=== PATIENT | male | born 1945 | race Caucasian/White ===

== ENCOUNTER 2017-12-02 00:36 | Inpatient (IN) | payer MEDICARE ==
[2017-12-02] VITALS (29 sets, daily range): BP systolic 107–199; BP diastolic 53–109
[~2017-12-02] VITALS: Ht 185.4 cm; Wt 79.4 kg
--- NOTE | 2017-12-02 00:36 | NUR ---
BIB FAMILY C/O "NOT BEING ABLE TO SLEEP, SHAKING, HALLUCINATIONS" VSS NAD A/OX4 ABLE TO MAKE NEEDS KNOWN. WILLL CONTINUE TO MONITOR FOR ANY CHANGES DURING THE SHIFT.
--- NOTE | 2017-12-02 00:37 | NUR ---
ER MD SAMUEL AT BEDSIDE
[2017-12-02] MEDS ORDERED: Thiamine 100 MG in IV D5W 50 ML IV SCH ×3 (01:30→05:15)
[2017-12-02] MEDS ORDERED: LORAZEPAM INJ 2 MG/ML VIAL IV ONE ×3 (01:30→04:00)
[2017-12-02] MEDS ORDERED: IV NS 0.9% 1,000 ML BAG IV ONE (01:30)
[2017-12-02 01:42] LABS: BASOPHILS % (AUTO) 0.3 % (0.0-2.0); EOSINOPHILS % (AUTO) 2.1 % (0.0-6.0); HEMATOCRIT 42 % (39-51); HEMOGLOBIN 14.3 g/dL (13.5-17.5); LYMPHOCYTES # (AUTO) 0.7 /CMM (0.8-4.8); LYMPHOCYTES % (AUTO) 10.9 % (20.0-44.0); MEAN CORPUSCULAR HEMOGLOBIN 36 PG (26.0-33.0); MEAN CORPUSCULAR HGB CONC 34 g/dl (31.0-36.0); MEAN CORPUSCULAR VOLUME 105 fL (80-96); MONOCYTES # (AUTO) 0.7 /CMM (0.1-1.30); MONOCYTES % (AUTO) 10.8 % (2.0-12.0); NEUTROPHILS # (AUTO) 5.2 /CMM (1.8-8.9); NEUTROPHILS % (AUTO) 75.9 % (43.0-81.0); PLATELET COUNT (AUTO) 176 /CMM (150-450); RDW COEFFICIENT OF VARIATION 14.6 (11.5-15.0); RED BLOOD CELL COUNT(AUTO) 3.95 MIL/uL (4.5-6.0); WHITE BLOOD COUNT (AUTO) 6.8 K/uL (4.3-11.0)
[2017-12-02] MEDS ORDERED: Thiamine 100 MG/ML VIAL ONE (01:46)
[2017-12-02] MEDS ORDERED: LORAZEPAM INJ 2 MG/ML VIAL ONE ×3 (01:47→03:47)
[2017-12-02 01:51] LABS: CALCIUM, SERUM 9.2 mg/dL (8.5-10.1); CARBON DIOXIDE 27 mmol/L (21-32); CHLORIDE 100 mmol/L (98-107); GLUCOSE 96 mg/dL (74-106); POTASSIUM 4.5 mmol/L (3.5-5.1); SODIUM SERUM 138 mmol/L (136-145); UREA NITROGEN, BLOOD 13 mg/dL (7-18)
[2017-12-02 01:53] LABS: ALCOHOL, BLOOD < 3 mg/dL (0-0)
[2017-12-02] MEDS ORDERED: CHLORDIAZEPOXIDE HCL 25 MG CAPSULE PO ONE (04:00)
--- NOTE | 2017-12-02 04:25 | NUR ---
FAMILY HAS LEFT BEDSIDE. PT IS STILL AGITATED AFTER RECEIVING MULTIPLE DOSES OF ATIVAN IVP. PER MD SAMUEL WILL BE ADMITTING PT TO TELE
--- NOTE | 2017-12-02 04:49 | NUR ---
REPORT GIVEN TO LELO
[2017-12-02] MEDS ORDERED: IV D5/0.45 NACL 1,000 ML IV PRN (04:57)
[2017-12-02] MEDS ORDERED: LORAZEPAM INJ 2 MG/ML VIAL IV PRN (05:00)
[2017-12-02] MEDS ORDERED: ACETAMINOPHEN 325 MG TABLET PO PRN ×2 (05:00→05:15)
[2017-12-02] MEDS ORDERED: ACETAMINOPHEN 650 MG/SUPP.RECT RC PRN ×2 (05:00→05:15)
[2017-12-02] MEDS ORDERED: MAG HYDROX/AL HYDROX/SIMETH 30 ML UDC PO PRN ×2 (05:00→05:15)
[2017-12-02] MEDS ORDERED: ONDANSETRON HCL/PF 4 MG/2 ML VIAL IVP PRN ×2 (05:00→05:15)
[2017-12-02] MEDS ORDERED: Z GUARD REMEDY 2 OZ OINT TP PRN ×2 (05:00→05:15)
[2017-12-02] MEDS ORDERED: MAGNESIUM HYDROXIDE 30 ML UDC PO PRN ×2 (05:00→05:15)
[2017-12-02] MEDS ORDERED: INSULIN REGULAR, HUMAN 100 UNIT/ML 3 ML VIAL SQ PRN (05:30)
[2017-12-02] MEDS ORDERED: DEXTROSE 50%-WATER 50 ML DISP.SYRIN IV PRN ×2 (05:30)
[2017-12-02] MEDS: BLOOD SUGAR DIAGNOSTIC 1 EACH STRIP IN SCH ×4 (06:00→18:18)
[2017-12-02] MEDS ORDERED: BLOOD SUGAR DIAGNOSTIC 1 EACH STRIP IN SCH (06:00)
--- NOTE | 2017-12-02 06:28 | NUR ---
0515AM: PT WAS BROUGHT TO THE UNIT VIA GURNEY, PT IS SWEATING, STILL HAVING TREMORS IN THE LEGS, TRYING TO KICK AND PUT HIS LEGS OUT OF BED, PT IS AGITATED, FLUSHED FACE, MUMBLED WORDS REALLY DIFFICULT TO UNDERSTAND, PT RECEIVED 1L NS BOLUS IN ER, A TOTAL OF 10MG ATIVAN INJ, THIAMINE IV, NOTED PT'S LEFT AC IV ACCESS TO BE OUT, REINSERTED NEW IV ON LEFT AC G 20, ALSO ANOTHER IV ON RIGHT FA G 20, CONNECTED TO D5 1/2 NS ORDERED BY . PT WILL BE ADMITTED FOR ALCOHOL WITHDRAWAL, UPON REPORT PT HAS ETOH ABUSE, DRINK WHISKEY (PINT) EVERYDAY. PT REALLY HAS FOUL, ALCOHOL ODOR, DECIDED TO CLEAN THE PT, BED BATH PROVIDED WITH HELP OF ANOTHER RN AND TRESTLEMAN, PT REALLY STRONG, MOVING HIS UPPER AND LOWER EXTREMITIES. LAST VS REPORTED 119/75 T 98.2 RR 20, 98% RA, BLOOD SUGAR TAKEN RESULT IS 76. PLACED ON TELE MONITORING SINUS RHYTHM HR 80. PT NOTED TO HAVE RIGHT ELBOW ABRASION, RIGHT LEG ABRASION. INVENTORY OF BELONGING COMPLETED BY TRESTLEMAN IMMACULATE. AT 0530,APPROACHED BY JASPER SUMMERS THAT SHE RECEIVED A CALL FROM LAND PLANNER LOGAN VELA THAT THE PT WILL BE ADMITTED TO ICU, NOT TELEMETRY UNIT. JASPER COTTER CONTACTED JASPER HAMMOND AND ASK FOR A BED. AT 0540, LAND PLANNER LOGAN VELA CAME TO THE UNIT TO SEE THE PT, AND TOLD THE ME (THE RN), THAT PT IS AN ICU ADMISSION AND SHE DOESNT KNOW WHY THEY BRING PT TO TELEMETRY UNIT. PER JASPER SUMMERS, PT WILL GO TO BED 257 IN ICU. AT 0555, I WAS TOLD BY JASPER SUMMERS TO BRING THE PT TO ICU AND GIVE BED SIDE REPORT SHE ALREADY CALLED ICU AND TALKED TO INGA THE CASER UP/ELECTRONIC SCALE SUBASSEMBLER.CONNECTED TO 2L OXYGEN VIA NC. 0600, TRANSFERRED PT TO ICU VIA ACLS PROTOCOL. UPON GETTING TO ICU, WATCH ENGINEER ED STOOD UP, RAISED HIS VOICE THAT IT GET THE ATTENTION OF ALL THE STAFF IN ICU, AND ASKED WHY I BROUGHT THE PT WITHOUT GIVING BED SIDE REPORT, I TOLD HIM THAT I WAS TOLD TO BRING THE PT NOW AND GIVE REPORT AT BED SIDE, BECAUSE THAT WAS THE RAWHIDE BONE ROLLER TOLD ME, THAT ICU STAFF AWARE WE WILL BRING PT TO THE UNIT AND GIVE BED SIDE REPORT. I TRIED TO EXPLAIN TO HIM WHAT'S GOING ON, AND HE STILL UPSET. WE MOVED THE PT TO ROOM 257, AND I GAVE FULL REPORT TO ED RN. INFORMED HIM THAT WE HAVE NOT STARTED ANY DOCUMENTATION/ADMISSION THE PT JUST GOT TO [facility] UNIT AND WHILE WERE CLEANING THE PT, TILER'S ASSISTANT INFORMED US PT IS AN ICU ADMISSION AND NEEDS TO GO APPROPRIATE UNIT PER BACTERIOLOGIST MEDICAL. I WAS GIVING REPORT, HE'S QUESTIONING WHY THE BACTERIOLOGIST MEDICAL WANTS THE PT TO BE IN ICU, I TOLD HIM PT CAME FOR ALCOHOL WITHDRAWAL, PT STILL AGITATED, SWEATING TOO MUCH, UNABLE TO SWALLOW, DECREASED MENTATION, UNABLE TO ANSWER ANY QUESTION DUE TO PT'S CONDITION/MENTAL STATE, AND ITS NOT SAFE TO KEEP PT IN TELE UNIT ONLY, PT NEEDS HIGHER LEVEL OF CARE. ALL BELONGINGS SENT WITH THE PT UPON TRANSFER. 0610, INFORMED TILER'S ASSISTANT SUMMERS ABOUT THE INCIDENT. AND TO COMPLETE THE TRANSFER PROCESS IN THE COMPUTER.
[2017-12-02 07:02] LABS: ABG BASE EXCESS -0.1 mmol/L; ABG OXYGEN SATURATION 96.9 % (92.0-98.5); ABG PCO2 34.3 mmHg (35.0-45.0); ABG PO2 95.8 mmHg (75.0-100.0); AaDO2 63.4 mmHg; MetHb 0.7 % (0.0-1.5); O2Hb 93.3 % (94.0-97.0); SITE, ABG Left Radial; VENT MODE, BG 2LNC
[2017-12-02] MEDS: LORAZEPAM INJ 2 MG/ML VIAL IV PRN ×6 (07:07→23:05)
--- NOTE | 2017-12-02 07:22 | NUR ---
SYRUP MIXER ASSISTANT PT WAS ADMITTED FROM ER AT 06.10 A.M. WITH DIAGNOSIS ACUTE ETOH WITHDRAWAL. PT IS CONFUSED,EXTREMELY AGITATED, SWEATY, MOVES ALL EXTREMITIES BUT DOES NOT FOLLOW SHOSHANA COMMANDS. BILATERAL SOFT WRIST RESTRAINTS APPLIED. SCOPE-SR. O2 2L VIA N/C. ATIVAN 2 MG IVP GIVEN AT 7 A.M. MAIN IV D51/2 NS AT 100 MLS/HR. REPORT GIVEN TO JORGE HENSON RN.
--- NOTE | 2017-12-02 07:30 | NUR ---
INITIAL NOTES: PT AGITATED GARBLED SPEECH TWISTING IN BED UNABLE TO DO EKG. PT IN RESTRAINTS PIV PULLED OUT ON RIGHT ARM REPLACED WITH 20 G TAPED SECURELY. PT GIVEN MEDICATIONS FOR AGITATION RESPONDED WELL. PT ST ON CLOTH DYE RANGE OPERATOR FACE AND BODY MOIST. PT NPO FOR NOW. NO SKIN BRAKE DOWN NOTED. PT HAS SECOND PIV IN RIGHT AC RUNNING D51/2 NS@100. SITE CLEAN DRY WITHOUT REDNESS OR SWELLING. BED IN LOW POSITION AND LOCKED WILL CONTINUE TO MONITOR
[2017-12-02] MEDS ORDERED: LORAZEPAM INJ 2 MG/ML VIAL IV STA (08:07)
[2017-12-02] MEDS: PANTOPRAZOLE 40 MG VIAL IV SCH (08:17)
[2017-12-02] MEDS: DOCUSATE SODIUM 100 MG CAPSULE PO SCH ×2 (08:50→16:57)
--- NOTE | 2017-12-02 08:52 | NUR ---
RT AFTER NUMEROUS ATTEMPTS UNABLE TO OBTAIN EKG AT THIS TIME DUE TO PT UNCONTROLLABLY TRASHING. DR PURDY MADE AWARE ALONG WITH NURSING STAFF. WILL ATTEMPT EKG AT LATER TIME IF AND WHEN PT CAN BE SEDATED.
[2017-12-02] MEDS ORDERED: SIMV20TA6 PO (08:55)
[2017-12-02] MEDS ORDERED: AMLO2.5T PO (08:55)
[2017-12-02] MEDS ORDERED: PRAM0.253 PO (08:58)
[2017-12-02] MEDS ORDERED: PANTOPRAZOLE 40 MG VIAL IV SCH (09:00)
[2017-12-02] MEDS ORDERED: DOCUSATE SODIUM 100 MG CAPSULE PO SCH (09:00)
[2017-12-02] MEDS: INSULIN REGULAR, HUMAN 100 UNIT/ML 3 ML VIAL SQ PRN (11:56)
[2017-12-02] MEDS: IV D5/0.45 NACL 1,000 ML IV PRN (13:31)
--- NOTE | 2017-12-02 14:53 | NUR ---
SON LUCIANA AT BEDSIDE WITH SPOUSE OF PT ALONDRA. LUCIANA TELEPHONE NUMBER: {SON} ALONDRA TELEPHONE NUMBER: {SPOUSE}
--- NOTE | 2017-12-02 19:30 | NUR ---
ICU NOTES RECEIVED PT SLEEPING,RESPIRATIONS REGULAR AND EVEN.MONITOR SHOWS SINUS RHYTHM.
[2017-12-02] MEDS: Thiamine 100 MG in IV D5W 50 ML IV SCH (22:25)
[2017-12-03] VITALS (31 sets, daily range): BP systolic 112–168; BP diastolic 59–107
[2017-12-03] MEDS: BLOOD SUGAR DIAGNOSTIC 1 EACH STRIP IN SCH ×5 (00:28→23:25)
[2017-12-03] MEDS: IV D5/0.45 NACL 1,000 ML IV PRN ×3 (00:34→18:35)
[2017-12-03] MEDS: LORAZEPAM INJ 2 MG/ML VIAL IV PRN ×10 (01:21→22:19)
--- NOTE | 2017-12-03 06:02 | NUR ---
ICU NOTES GIVEN A TOTAL OF 6MG OF ATIVAN IVP
--- NOTE | 2017-12-03 06:35 | NUR ---
ICU/RETAIL PHARMACY TECHNICIAN PT IS TRYING TO GET OUT OF BED, PT HAS RESTRAINTS. PT HAS BED ALARM ON. PT HAS BEEN REORT. HOWEVER PT STILL CONTINUES TO SIT UP IN BED, LEAN OVER SIDE RAILS, PUT FEET OVER RAILS AND GET OUT OF BED. PT IS HAVING A DIFFICULT TIME UNDERSTANDING THAT HE CAN NOT GET OUT OF BED. MD CALLED ABOUT SITTER ORDER FOR PT'S SAFETY, ORDER RECEIVED AND NURSING OFFICE CALLED MADE AWARE OF WHAT PT IS DOING AND THE RISKS OF PT NOT HAVING A SITTER.
[2017-12-03] MEDS: PANTOPRAZOLE 40 MG VIAL IV SCH (08:22)
[2017-12-03] MEDS: DOCUSATE SODIUM 100 MG CAPSULE PO SCH ×2 (08:23→17:00)
--- NOTE | 2017-12-03 09:00 | NUR ---
BUTT WELDER- RECEIVED PT FROM MARSHA HUTCHINSON. PT RESTLESS IN BED. BUE SOFT WRIST RESTRAINTS IN PLACE. CONTINUES ON 2L NC, RESPIRATIONS EVEN AND UNLABORED, NO SOB OR DISTRESS PRESENT. BEDSIDE MONITOR REVEALS SINUS RHYTHM. RFA 20G RUNNING D5 1/2NS @ 100 ML/HR. LFA 20G HL FLUSHED, PATENT AND INTACT. WILL CONTINUE TO MONITOR.
[2017-12-03 10:02] LABS: BASOPHILS % (AUTO) 0.7 % (0.0-2.0); EOSINOPHILS % (AUTO) 3.2 % (0.0-6.0); HEMATOCRIT 40 % (39-51); HEMOGLOBIN 13.8 g/dL (13.5-17.5); LYMPHOCYTES # (AUTO) 0.6 /CMM (0.8-4.8); LYMPHOCYTES % (AUTO) 10.1 % (20.0-44.0); MEAN CORPUSCULAR HEMOGLOBIN 37 PG (26.0-33.0); MEAN CORPUSCULAR HGB CONC 35 g/dl (31.0-36.0); MEAN CORPUSCULAR VOLUME 105 fL (80-96); MONOCYTES # (AUTO) 0.5 /CMM (0.1-1.30); MONOCYTES % (AUTO) 9.1 % (2.0-12.0); NEUTROPHILS # (AUTO) 4.5 /CMM (1.8-8.9); NEUTROPHILS % (AUTO) 76.9 % (43.0-81.0); PLATELET COUNT (AUTO) 149 /CMM (150-450); RDW COEFFICIENT OF VARIATION 14.5 (11.5-15.0); RED BLOOD CELL COUNT(AUTO) 3.79 MIL/uL (4.5-6.0); WHITE BLOOD COUNT (AUTO) 5.9 K/uL (4.3-11.0)
[2017-12-03 10:29] LABS: CALCIUM, SERUM 8.1 mg/dL (8.5-10.1); CARBON DIOXIDE 24 mmol/L (21-32); CHLORIDE 105 mmol/L (98-107); CREATININE 0.7 mg/dL (0.6-1.3); GLUCOSE 108 mg/dL (74-106); MAGNESIUM 1.7 mg/dL (1.8-2.4); PHOSPHORUS 2.8 mg/dL (2.5-4.9); POTASSIUM 3.4 mmol/L (3.5-5.1); SODIUM SERUM 137 mmol/L (136-145); UREA NITROGEN, BLOOD 7 mg/dL (7-18)
[2017-12-03 10:38] LABS: CHOLESTEROL 159 mg/dL (<200); HDL CHOLESTEROL 118 mg/dL (40-60); LDL 39 mg/dL (0-99); THYROID STIMULATING HORMONE 1.653 uIU/mL (0.358-3.74); TRIGLYCERIDES 66 mg/dL (30-150)
[2017-12-03] MEDS: Magnesium 1GM/D5W 100ML PREMIX 100 ML IV SCH ×2 (15:03→16:15)
[2017-12-03] MEDS: POTASSIUM CL. PREMIX PERIPHER. 50 ML IV SCH ×2 (15:04→16:14)
--- NOTE | 2017-12-03 16:15 | NUR ---
SYSTEM DEVELOPER ASSOCIATE MANAGER- INFORMED DR. VACA PT MORE AWAKE & FOLLOWING COMMANDS. WAS ABLE TO PUT PT UP IN CHAIR. PT REQUESTING TO DRINK WATER, WATER GIVEN AND NO ASPIRATION NOTED. OBTAINED ORDER FOR SOFT DIET. WILL CONTINUE TO MONITOR.
--- NOTE | 2017-12-03 19:45 | NUR ---
ICU/SUPERVISOR LENDING ACTIVITIES RECEIVED REPORT FROM DAY NURSE, PT WAS GIVEN ATIVAN 2MG IVP FOR RESTLESS. PT IS CONFUSED, UNABLE TO BE REASONED WITH. PT IS CURRENTLY ON ROOM WITH SATURATION AT 95%. PT IS DIAPERED. NO SKIN ISSUES TO BE ADDRESSED AT THIS TIME. PT IS ON A REGULAR SOFT DIET. WILL CONTINUE TO MONITOR THIS PT.
[2017-12-03] MEDS ORDERED: CHLORDIAZEPOXIDE HCL 25 MG CAPSULE PO SCH (21:00)
--- NOTE | 2017-12-03 21:23 | NUR ---
ICU/TOY PACKER PT IS TRYING TO GET OUT OF BED, VERY AGITATED TRYING TO GET OUT OF BED. ATIVAN IVP WAS GIVEN ALREADY, NO EFFECT ON PT. CALLED TREE TRIMMER HELPER POLO CALLED ABOUT THE LEVEL OF AGITATION. ORDER FOR LIBRIUM WAS PLACED INTO THE COMPUTER BY TREE TRIMMER HELPER ONE TIME ORDER THEN BID THERE AFTER. CHARGE NURSE AWARE OF THIS NEW ORDER. ORDER WAS RECEIVED AND CARRIED OUT. WILL CONTINUE TO MONITOR THIS PT.
--- NOTE | 2017-12-03 22:30 | NUR ---
ICU/OIL WELL SERVICES DISPATCHER PT CONTINUES TO BE RESTLESS, THROWING LEGS OVER SIDE RAILS. PULLING OFF GOWN, TAKING OFF DAPPER. ATIVAN 2 MG GIVEN IVP BY CHARGE NURSE. WILL CONTINUE TO MONITOR THIS PT CLOSELY.
[2017-12-03] MEDS: Thiamine 100 MG in IV D5W 50 ML IV SCH (23:04)
--- NOTE | 2017-12-03 23:27 | NUR ---
ICU/MILK VENDOR PT'S BLOOD SUGAR IS 89, THERE IS NO COVERAGE FOR THIS PER MD ORDERS, WILL CONTINUE TO MONITOR THE BLOOD SUGAR ORDERED BY MD AND HOSPITAL PROTOCOL.
[2017-12-04] VITALS (16 sets, daily range): BP systolic 123–166; BP diastolic 63–121
[2017-12-04] MEDS: LORAZEPAM INJ 2 MG/ML VIAL IV PRN ×7 (00:36→22:17)
--- NOTE | 2017-12-04 00:40 | NUR ---
ICU/MIXING PLACE SUPERVISOR PT BECAME RESTLESS, KICKING LEGS OVER RAILS. PT THEN STARTED YELLING OUT PEOPLE'S NAMES. CHARGE NURSE MADE AWARE OF THE PT'S BEHAVIOR, ATIVAN 2MG GIVEN IVP . WILL CONTINUE TO CLOSELY MONITOR THIS PT.
--- NOTE | 2017-12-04 02:46 | NUR ---
ICU/REFRIGERATOR TESTER PT IS COMBATIVE, TRIED PLACE PT BACK INTO BED, HOWEVER PT BEGAN TO HIT AND PINCH. PT IS THROWING LEGS OVER SIDE RAILS, PULLING GOWN AND DIAPER OFF. PT REQUIRES FREQUENT ORT TO PLACE AND TIME. CHARGE NURSE AWARE OF THIS, ATIVAN 2MG GIVEN BY CHARGE NURSE. WILL CONTINUE TO CLOSELY MONITOR THIS PT. PT REQUIRES A SITTER, ALL PAPER WORK FILLED OUT AND GIVEN TO NURSING OFFICE FOR TOMORROW DAY SHIFT.
[2017-12-04] MEDS: IV D5/0.45 NACL 1,000 ML IV PRN ×2 (04:43→15:15)
[2017-12-04] MEDS: BLOOD SUGAR DIAGNOSTIC 1 EACH STRIP IN SCH ×3 (05:48→17:31)
--- NOTE | 2017-12-04 06:32 | NUR ---
ICU/BANK CONSULTANT PT CONTINUES TO BE EXTREMELY RESTLESS, KICKING LEGS OVER RAILS, PINCHING WHILE BEING REPOSITIONED IN BED. CHARGE NURSE MADE AWARE OF THE PT'S BEHAVIOR, ATIVAN 2MG GIVEN IVP . WILL CONTINUE TO CLOSELY MONITOR THIS PT. SITTER IS ORDERED FOR TODAY DURING DAY SHIFT
--- NOTE | 2017-12-04 07:30 | NUR ---
CONTRACT DESIGN AGENT INITIAL NOTES RECEIVED PATIENT IN BED, ALERT AND AWAKE, NO SIGNS OF DISTRESS, NO SIGNS OF HALLUCINATIONS, ON BILATERAL RESTRAINTS AT THIS TIME WILL RELEASE AND OBSERVE PATIENT, SITTER AT BEDSIDE NO NEED FOR RESTRAINTS AT THIS TIME, PATIENT ATTEMPTING TO GET OUT OF BED STATING HE WANTS TO LEAVE, REORIENTED PATIENT AND EXPLAINED WHY HE IS IN HOSPITAL, WILL CONTINUE TO MONITOR.
[2017-12-04] MEDS: PANTOPRAZOLE 40 MG VIAL IV SCH (08:06)
[2017-12-04] MEDS: CHLORDIAZEPOXIDE HCL 25 MG CAPSULE PO SCH ×2 (08:06→16:58)
[2017-12-04] MEDS: DOCUSATE SODIUM 100 MG CAPSULE PO SCH ×2 (08:06→16:58)
--- NOTE | 2017-12-04 11:45 | NUR ---
JEWELRY REPAIRER NOTES PATIENT TRANSFERRED TO RM 110, REPORT GIVEN TO JASPER BRICE FOR CONTINUITY OF CARE, TRANSFERRED BY BED AND CARDIAC MONITORING, NO DISTRESS NOTED.
--- NOTE | 2017-12-04 12:00 | NUR ---
RN NOTES RECEIVED PT FROM ICU IN ROOM 110, ALERT/ CONFUSED , TRYING TO GET OUT OF BED ,SITTER AT THE BEDSIDE FOR SAFETY RECAUSIONS KIP. WRIST PROTECTIVE DEVICE ON FOR PT SAFETY , BED ALARM ON , RESPIRATION EVEN AND UNLABORED , ON RA, NO SOB NOTED, ON TELE SR HR IN 70'S , R FA IV SITE WITH D51/2 NS AT 100CC/HR RUNNING , SR UP X2, CALL LIGHT WITHIN EASY REACH, BED LOCKED AND IN LOWEST POSITION , WILL CONTINUE TO MONITOR .
--- NOTE | 2017-12-04 12:14 | NUR ---
Social service consult requested by LOGAN Patino for alcohol withdrawal. Pt. is a 72 year old male who was admitted to [facility] for alcohol abuse. SW attempted to meet with pt. for an assessment, however pt. is still very confused and going through ETOH withdrawals. SW to reassess pt. once he is more alert and oriented.
--- NOTE | 2017-12-04 18:38 | NUR ---
RN NOTES PT STILL CONFUSED , TRYING TO GET OUT OF THE BED, SITTER AT THE BEDSIDE FOR SAFETY PRECAUTIONS , D51/2NS AT 100CC/HR RUNNING VIA R FA IV SITE , NO COMPLICATION NOTED ST THE IV SITE , SR UP x3, CALL LIGHT WITHIN EASY REACH , WILL ENDOSE TO BREAST PULLER NURSE FOR JOSEPH
--- NOTE | 2017-12-04 20:05 | NUR ---
VINCENT RN NOTES RECEIVED BEDSIDE REPORT FROM AM NURSE. PT IS ALERT/ CONFUSED , TRYING TO GET OUT OF BED ,SITTER AT THE BEDSIDE FOR SAFETY . WRIST SOFR RESTRAINT ON FOR PT SAFETY , BED ALARM ON , RESPIRATION EVEN AND UNLABORED , ON RA, NO SOB NOTED, ON TELE SR HR IN 70'S , R FA IV SITE WITH D51/2 NS AT 100CC/HR RUNNING , SR UP X2, CALL LIGHT WITHIN EASY REACH, BED LOCKED AND IN LOWEST POSITION , WILL CONTINUE TO MONITOR .
[2017-12-04] MEDS: Thiamine 100 MG in IV D5W 50 ML IV SCH (23:07)
[2017-12-05] VITALS (7 sets, daily range): BP systolic 127–165; BP diastolic 71–92
[2017-12-05] MEDS: BLOOD SUGAR DIAGNOSTIC 1 EACH STRIP IN SCH ×4 (00:29→17:15)
[2017-12-05] MEDS: IV D5/0.45 NACL 1,000 ML IV PRN ×2 (02:44→15:00)
--- NOTE | 2017-12-05 07:05 | NUR ---
RN NOTES RECEIVED PT ON BED, A/Ox1, CONFUSED , ON RA , RESPIRATION EVEN AND UNLABORED, SITTER AT THE BEDSIDE FOR SAFETY PRECAUTION, TRIES TO GET OUT OF THE BED , KIP SOFT PROTECTIVE DEVICE ON FOR PT SAFETY , ON TELE SR HR IN 80'S , D5 1/2NS AT 100CC/HR RUNNING VIA R FA IV SITE , SR UP x3, CALL LIGHT WITHIN EASY REACH, BED LOCKED AND IN LOWEST POSITION , CONTINUE TO MONITOR
[2017-12-05] MEDS: PANTOPRAZOLE 40 MG VIAL IV SCH (08:03)
[2017-12-05] MEDS: DOCUSATE SODIUM 100 MG CAPSULE PO SCH ×2 (08:03→16:51)
[2017-12-05] MEDS: CHLORDIAZEPOXIDE HCL 25 MG CAPSULE PO SCH ×2 (08:03→16:51)
--- NOTE | 2017-12-05 12:00 | NUR ---
RN NOTES VSS STABLE , PT CONFUSED , SITTER AT THE BEDSIDE, CONTINUE TO MONITOR .
[2017-12-05] MEDS: THIAMINE HCL 100 MG TABLET PO SCH (16:52)
--- NOTE | 2017-12-05 18:00 | NUR ---
RN NOTES PT STILL CONFUSED AND AGITATED ,SITTER AT THE BEDSIDE, VSS STABLE , D51/NS AT 100CC/HR RUNNING VIA L WRIST IV G 22 , SR UP x3. CALL LIGHT WITHIN EASY REACH, WILL ENDOSE TO AUTOMOTIVE ELECTRICAL HELPER NURSE FOR JOSEPH .
[2017-12-06] VITALS: BP 165/92
[2017-12-06] MEDS: IV D5/0.45 NACL 1,000 ML IV PRN ×3 (00:14→22:43)
[2017-12-06] MEDS: BLOOD SUGAR DIAGNOSTIC 1 EACH STRIP IN SCH ×4 (01:18→18:10)
[2017-12-06] MEDS: INSULIN REGULAR, HUMAN 100 UNIT/ML 3 ML VIAL SQ PRN (01:20)
[2017-12-06 04:00] VITALS: BP 162/88
[2017-12-06] MEDS: LORAZEPAM INJ 2 MG/ML VIAL IV PRN (04:19)
--- NOTE | 2017-12-06 07:20 | NUR ---
CABIN AGENT OPENING NOTE RECEIVED PATIENT IN BED, ALERT, ORIENTED X1. ON ROOM AIR TOLERATING WELL. PATIENT IS SLIGHTLY AGITATED SITTER AT BEDSIDE. RESPIRATIONS EVEN AND UNLABORED, IN NO APPARENT DISTRESS OR DISCOMFORT AT THIS TIME. SOFT WRIST RESTRAINTS ARE ON. ORDER IN PLACE. GOOD CIRCULATION PRESENT IN BILATERAL UPPER EXTREMITIES. WILL RELEASE RESTRAINS TO ASSESS FOR CIRCULATION AND BEHAVIOR PER PROTOCOL. PATIENT WITH A SITTER AT BEDSIDE FOR SAFETY. RIGHT FA 22G WITH D5 1/2 NS RUNNING AT 100ML/HR. PATIENT IS STABLE AT THIS TIME. ALL NEEDS ATTENDED, KEPT CLEAN AND COMFORTABLE. SAFETY MEASURES IN PLACE, BED IN LOW LOCKED POSITION, SIDE RAILS UPX3, CALL LIGHT WITHIN EASY REACH. WILL CONTINUE TO MONITOR.
[2017-12-06 08:00] VITALS: BP 141/79
[2017-12-06] MEDS: PANTOPRAZOLE 40 MG VIAL IV SCH (09:00)
[2017-12-06] MEDS: THIAMINE HCL 100 MG TABLET PO SCH (09:00)
[2017-12-06] MEDS: CHLORDIAZEPOXIDE HCL 25 MG CAPSULE PO SCH ×2 (09:00→16:20)
[2017-12-06] MEDS: DOCUSATE SODIUM 100 MG CAPSULE PO SCH ×2 (09:00→16:20)
--- NOTE | 2017-12-06 09:00 | NUR ---
RELEASED RESTRAINTS AT THIS TIME. PATIENT IS IN BED, SLEEPING. CALM AND COOPERATIVE WHEN AROUSED. WILL CONTINUE TO MONITOR.
[2017-12-06 12:00] VITALS: BP 106/69
[2017-12-06] MEDS ORDERED: THIA100T13 PO (13:13)
[2017-12-06] MEDS ORDERED: CHLO25CA22 PO (13:13)
[2017-12-06 16:00] VITALS: BP 127/65
--- NOTE | 2017-12-06 19:52 | NUR ---
PATIENT SCHEDULING MANAGER CLOSING NOTE PATIENT IN BED, ALERT, ORIENTED X2-3. ON ROOM AIR TOLERATING WELL. PATIENT IS CALM AND COOPERATIVE AT THIS TIME, SITTER AT BEDSIDE. RESPIRATIONS EVEN AND UNLABORED, IN NO APPARENT DISTRESS OR DISCOMFORT AT THIS TIME. PATIENT WAS RELEASED OFF RESTRAINTS THROUGHOUT MY SHIFT. REMAINED CALM ON COOPERATIVE WITH SITTERS PRESENCE. AMBULATES WITH ASSISTANCE TO THE BATHROOM. OVERESTIMATES HIS PHYSICAL ABILITIES OCCASIONALLY BY TRYING TO GET OUT OF THE BED AND WALKING ON HIS OWN. PT TO EVALUATE THE PATIENT IN AM. RIGHT FA 22G WITH D5 1/2 NS RUNNING AT 100ML/HR. NO SIGN OF INFILTRATION NOTED. PATIENT IS STABLE AT THIS TIME. ABLE TO COMMUNICATE NEEDS, ALL NEEDS ATTENDED, KEPT CLEAN AND COMFORTABLE. SAFETY MEASURES IN PLACE, BED IN LOW LOCKED POSITION, SIDE RAILS UPX3, CALL LIGHT WITHIN EASY REACH. WILL ENDORSE TO AM NURSE FOR JOSEPH.
[2017-12-06 20:00] VITALS: BP 127/75
[2017-12-07] VITALS: BP 138/69
[2017-12-07] MEDS: BLOOD SUGAR DIAGNOSTIC 1 EACH STRIP IN SCH ×4 (00:05→17:24)
[2017-12-07 04:00] VITALS: BP 128/73
[2017-12-07 06:29] LABS: BASOPHILS % (AUTO) 0.6 % (0.0-2.0); EOSINOPHILS % (AUTO) 3.7 % (0.0-6.0); HEMATOCRIT 40 % (39-51); HEMOGLOBIN 13.8 g/dL (13.5-17.5); LYMPHOCYTES # (AUTO) 0.7 /CMM (0.8-4.8); LYMPHOCYTES % (AUTO) 16.5 % (20.0-44.0); MEAN CORPUSCULAR HEMOGLOBIN 36 PG (26.0-33.0); MEAN CORPUSCULAR HGB CONC 35 g/dl (31.0-36.0); MEAN CORPUSCULAR VOLUME 105 fL (80-96); MONOCYTES % (AUTO) 22.6 % (2.0-12.0); NEUTROPHILS # (AUTO) 2.5 /CMM (1.8-8.9); NEUTROPHILS % (AUTO) 56.6 % (43.0-81.0); PLATELET COUNT (AUTO) 192 /CMM (150-450); WHITE BLOOD COUNT (AUTO) 4.4 K/uL (4.3-11.0)
--- NOTE | 2017-12-07 06:47 | NUR ---
TELE-1/WEATHER ALGORITHM SCIENTIST PT TRANSFERRED TO ROOM 117-1. TOLERATED WELL.
[2017-12-07 06:58] LABS: CARBON DIOXIDE 25 mmol/L (21-32); CHLORIDE 103 mmol/L (98-107); CREATININE 0.9 mg/dL (0.6-1.3); GLUCOSE 106 mg/dL (74-106); MAGNESIUM 1.7 mg/dL (1.8-2.4); PHOSPHORUS 3.7 mg/dL (2.5-4.9); POTASSIUM 3.4 mmol/L (3.5-5.1); SODIUM SERUM 137 mmol/L (136-145); UREA NITROGEN, BLOOD 7 mg/dL (7-18)
--- NOTE | 2017-12-07 07:15 | NUR ---
GRAINER MACHINE INITIAL NOTES RECEIVED REPORT AND PT FROM PM NURSE, PT RESTING IN BED, A&O 2-3 ISRAELI SPEAKING, FORGETFUL AT TIMES, ON RA SAT ABOVE 96%, NO SOB OR ACUTE DISTRESS AT THIS TIME, ON TELE MON SR WITH HR 78, 06/12 SITTER DIANA AT BEDSIDE, RT FA 22G IV SITE INTACT AND PATENT RUNNING FLUIDS, NO INFILTRATION NOTED, ALL SAFETY MEASURES INITIATED, SIDE RAILS X2, BED LOW AND LOCKED, CALL LIGHT WITHIN REACH, WILL CONTINUE TO MONITOR.
[2017-12-07 08:00] VITALS: BP 128/70
[2017-12-07] MEDS: THIAMINE HCL 100 MG TABLET PO SCH (08:45)
[2017-12-07] MEDS: DOCUSATE SODIUM 100 MG CAPSULE PO SCH ×2 (08:46→16:41)
[2017-12-07] MEDS: PANTOPRAZOLE 40 MG VIAL IV SCH (08:46)
[2017-12-07] MEDS: CHLORDIAZEPOXIDE HCL 25 MG CAPSULE PO SCH ×2 (08:46→16:41)
[2017-12-07] MEDS: IV D5/0.45 NACL 1,000 ML IV PRN (08:47)
[2017-12-07 08:48] LABS: EOSINOPHILS % (MANUAL) 2 % (0-4); LYMPHOCYTES % (MANUAL) 15 % (16-48); MONOCYTES % (MANUAL) 18 % (0-11.0); NEUTROPHILS % (MANUAL) 65 (42-76)
[2017-12-07 12:00] VITALS: BP 121/75
[2017-12-07] MEDS ORDERED: POTASSIUM CHLORIDE 20 MEQ POWDER PACKET PO SCH (12:30)
[2017-12-07] MEDS: Magnesium 1GM/D5W 100ML PREMIX 100 ML IV SCH ×2 (12:57→14:17)
[2017-12-07 16:00] VITALS: BP 125/75
--- NOTE | 2017-12-07 17:22 | NUR ---
WEIR FISHER NOTES CALLED AND GAVE REPORT TO [facility] SPOKE WITH NURSE DEREK, PTS ALONDRA COELHO AWARE OF TRANSFER TO [facility] AT 1830 TODAY 12/07/17. DC ORDERS SIGNED AND COMPLETED PT STABLE FOR DC.
--- NOTE | 2017-12-07 18:41 | NUR ---
CHAIN MAKER HAND ENDING NOTES GAVE REPORT TO EMT AT BEDSIDE, PTS BELONGINGS LIST SIGNED, ID BAND REMOVED. IV SITE REMOVED NO INFILTRATION NOTED. ALL DUE MEDS GIVEN, ALL NEEDS MET, EXIT CARE AND DC PAPERWORK SIGNED AND COMPLETED, PTS LEFT VIA GURNEY TO [facility] TO ROOM 16B GAVE REPORT TO NURSE DEREK, MAG REPLACED TWO BAGS, PT EVALVE DONE, TELE BOX REMOVED, SPOKE WITH ALONDRA AND LET HER KNOW PT WILL BE GOING TO [facility] AT AROUND 5-6 PM TODAY 12/07/17. A&O X2-3 CONFUSED AT TIMES, VS: BP 125/75, HR 67, TEMP 98.0, RESP 16, O2 96% RA PAIN 0/10, MED LIST PROVIDED, WILL CONTINUE CARE AT REHAB.
== END 2017-12-07 18:51 | DRG 896 ==
LOC: ER 00:42 → TELE 05:18 → ICU 06:03 → TELE1 12-04 11:49
PROVIDERS: ADMIT Registered Nurse; ATTEND Registered Nurse
DX: F10.231 Alcohol dependence with withdrawal delirium (principal); G93.40 Encephalopathy, unspecified; I16.0 Hypertensive urgency; I10 Essential (primary) hypertension; F41.9 Anxiety disorder, unspecified; F10.239 Alcohol dependence with withdrawal, unspecified; F10.229 Alcohol dependence with intoxication, unspecified; Y90.0 Blood alcohol level of less than 20 mg/100 ml; F17.200 Nicotine dependence, unspecified, uncomplicated; F10.221 Alcohol dependence with intoxication delirium; T51.0X1A Toxic effect of ethanol, accidental (unintentional), initial encounter; R26.9 Unspecified abnormalities of gait and mobility
CPT/HCPCS: 36415; 36600; 71045-TC; 80048-TC; 80061-TC; 82803-TC; 82962-TC; 83735-TC; 84100-TC; 84443-TC; 84484-TC; 85025-TC; 87081-TC; A4349; A4606; C9113; G0480; J1815; J2060; J3411; J3475; J3480; J3490; J7030; J7060; Z7610